=== PATIENT | female | born 1970 | race Caucasian/White ===

== ENCOUNTER 2017-08-19 23:16 | Emergency (ER) | payer BC ==
[2017-08-19 23:20] VITALS: PULSE 63
--- NOTE | 2017-08-19 23:30 | CPEKG ---
Heart Rate: 48 RR Interval: 1250 P-R Interval: 152 QRSD Interval: 94 QT Interval: 436 QTC Interval: 390 P [place]: 20 QRS [place]: 33 T Wave [place]: 20 EKG Severity - OTHERWISE NORMAL ECG - EKG Impression: SINUS BRADYCARDIA Electronically Signed By: Lurdes Michael 20-Aug-2017 06:35:12
--- NOTE | 2017-08-19 23:44 | EDPHY ---
H & P Smoking Status: Never smoked Time Seen by Provider: 08/19/17 23:32 HPI/ROS: CHIEF COMPLAINT: Chest pain HISTORY OF PRESENT ILLNESS: 47-year-old female presents to the emergency department with chest pains, intermittent fevers and chills and feeling short of breath over last 8 weeks. The patient states that when she was in [place] in June she felt like she got a cold and it never resolved. She states over last 3 days especially she has had a burning sensation in her chest which is worse whenever she moves or tries to exert herself. She feels mildly short of breath. She has had intermittent fevers and chills. She did not receive a flu shot. She has had night sweats. No known ill contacts. She has never had these symptoms in the past. No calf swelling however she has had diffuse myalgias. REVIEW OF SYSTEMS: Constitutional: Subjective fevers, chills Eyes: No double or blurry vision. ENT: No sore throat. Respiratory: Shortness of breath. No cough. Cardiac: chest pain. Gastrointestinal: No abdominal pain, vomiting or diarrhea. Genitourinary: No dysuria. Musculoskeletal: No neck or back pain. Skin: No rashes. Neurological: No headache. (Rona Ramirez) Past Medical/Surgical History: Negative Family medical history: 52-year-old brother just had 4 vessel bypass (Rona Ramirez) Social History: , originally from [facility] (Rona Ramirez) Physical Exam: General Appearance: Alert, no distress. 126/84 97% on room air, temperature 36.7 Eyes: Pupils equal and round. Extraocular motions are all intact. ENT: Mouth: Mucous membranes moist. Respiratory: No wheezing, rhonchi, or rales, lungs are clear to auscultation. Cardiovascular: Regular rate and rhythm. Gastrointestinal: Abdomen is soft and nontender, no masses, no rebound or guarding, bowel sounds normal. Neurological: Alert and oriented x 3, cranial nerves II through XII grossly intact Skin: Warm and dry, no rashes. Musculoskeletal: Nontender to palpate along the cervical, thoracic or lumbar spine. Neck is supple. Extremities: Full range of motion and no peripheral edema. Psychiatric: Patient is oriented X 3, there is no agitation. (Rona Ramirez) Constitutional: Initial Vital Signs Temperature (C) 36.7 C 08/19/17 23:19 Heart Rate 63 08/19/17 23:19 Respiratory Rate 18 08/19/17 23:19 Blood Pressure 126/84 H 08/19/17 23:19 O2 Sat (%) 97 08/19/17 23:19 O2 Delivery Mode Room Air Allergies/Adverse Reactions: No Known Allergies Allergy (Verified 08/19/17 23:16) Home Medications: Medication Instructions Recorded Ondansetron HCl [Zofran] 4 mg PO Q4-6PRN PRN #10 tablet 03/13/16 Medical Decision Making - Diagnostics Imaging: I viewed and interpreted images myself ED Course/Re-evaluation: 47-year-old female presents emergency department with chest pressure and shortness of breath. Laboratory studies are pending. The patient will be turned over to Dr. Lurdes Michael, who reviewed the patient's laboratory studies. (Rona Ramirez) Differential Diagnosis: PHYSICIAN DOCUMENTATION: The patient was evaluated and managed by the [employer] [employer]. My co- signature indicates that I have reviewed this chart and I agree with the findings and plan of care as documented. I am the secondary supervising physician. This is a 47-year-old female with intermittent chest pain which is burning in nature associated with shortness of breath. Labs and studies have been reviewed and are all unremarkable. Her heart score is low. She will not require admission to the hospital. I have encouraged her to try an antacid over -the-counter. I have advised her to follow up with her primary care doctor for further care. (Lurdes Michael) Chest pain including but not limited to myocardial ischemia, pulmonary embolus, chest wall pain, pleural inflammation and pulmonary infectious causes. Shortness of breath including but not limited to pulmonary infectious process, COPD, asthma, pulmonary embolus and congestive heart failure. (Rona Ramirez) - Data Points Laboratory Results: Laboratory Results 08/19/17 23:55 08/19/17 23:55 Departure - Departure Disposition: Home, Routine, Self-Care Clinical Impression: Chest pain Qualifiers: Chest pain type: unspecified Qualified Code(s): R07.9 - Chest pain, unspecified Condition: Good Instructions: Chest Pain (ED) Additional Instructions: Please return to the emergency department if your worse in any way. Otherwise, you should follow up with your primary care doctor. Referrals: Stephanie Plata MD [Primary Care Provider] - As per Instructions
[2017-08-20 00:05] LABS: PLATELET COUNT 286 10^3/uL (150-400)
[2017-08-20 01:42] VITALS: BP 115/79; RESP 16; TEMP 97.9; O2SAT 96
== END 2017-08-20 01:42 | disposition home or self-care (01) ==
DX: R07.9 Chest pain, unspecified (principal)